=== PATIENT | male | born 2000 | race African-American/Black ===

== ENCOUNTER 2023-07-25 11:15 | Emergency (ER) | payer SELFPAY ==
[~2023-07-25] VITALS: Ht 182.9 cm; Wt 83.0 kg
[2023-07-25 11:25] VITALS: O2SAT 99
[2023-07-25 12:02] LABS: HEMATOCRIT. 43.1 % (42.0-52.0); HEMOGLOBIN. 14.3 g/dL (14.0-18.0); MEAN CORPUSCULAR HEMOGLOBIN 25.1 pg (28.0-32.0); MEAN CORPUSCULAR HGB CONC 33.3 g/dL (31.0-37.0); MEAN CORPUSCULAR VOLUME 75.6 fL (80.0-94.0); MEAN PLATELET VOLUME 8.9 fl (7.4-10.4); PLATELET 216 x1000/uL (130-400); RED CELL DISTRIBUTION WIDTH 14.2 % (11.6-14.6); WHITE BLOOD COUNT 12.5 x1000/uL (4.5-11.0)
[2023-07-25 12:03] LABS: CHLORIDE 101 mEq/L (98-107); POTASSIUM 4.1 mEq/L (3.5-5.1); SODIUM 136 mEq/L (136-145)
[2023-07-25 12:04] LABS: CALCIUM 9.4 mg/dL (8.7-10.4); CARBON DIOXIDE 30 mEq/L (21-32)
[2023-07-25 12:09] LABS: CREATININE 1.1 mg/dL (0.6-1.3); GLUCOSE 109 mg/dL (70-105); UREA NITROGEN BLOOD 14 mg/dL (9-23)
[2023-07-25 12:11] LABS: ALANINE AMINOTRANSFERASE 17 IU/L (10-49); ALBUMIN 4.3 g/dL (3.2-4.8); ASPARTATE AMINOTRANSFERASE 25 IU/L (<34); BILIRUBIN DIRECT 0.4 mg/dL (<=3.0); BILIRUBIN TOTAL 0.9 mg/dL (0.1-1.0); PROTEIN TOTAL 7.1 g/dL (6.0-8.3)
[2023-07-25 12:16] LABS: DIFFERENTIAL COMMENT 1
[2023-07-25] MEDS: IBUPROFEN 800MG TABLET PO ONE (12:31)
[2023-07-25] MEDS: ONDANSETRON 4MG ODT PO ONE (12:31)
[2023-07-25 13:04] LABS: PLATELET ESTIMATE NORMAL
[2023-07-25] MEDS ORDERED: AZIT250T12 MT (13:24)
[2023-07-25] MEDS ORDERED: ONDA4TAB50 MT (13:24)
[2023-07-25] MEDS ORDERED: CLAR10 MT (13:24)
[2023-07-25] MEDS ORDERED: FLUT9.9S BOTHNSTRLS (13:25)
[2023-07-25 13:32] VITALS: BP 129/87; PULSE 97; RESP 19; TEMP 97.9
== END 2023-07-25 13:30 | disposition home or self-care (01) ==
LOC: ER 11:15
DX: J01.80 Other acute sinusitis (principal); R42 Dizziness and giddiness; D57.80 Other sickle-cell disorders without crisis
CPT/HCPCS: 80076; 80048; 85025; 36415; 99283; Q0162; Z7610